=== PATIENT | male | born 1955 | race Caucasian/White ===

== ENCOUNTER → 2016-07-17 | Outpatient (CLI) | payer BC ==
[~2016-07-17] MED LIST: ASPIRIN EC81 MG PO; CELEBREX200 MG PO; FLOMAX0.4 MG PO; FOLIC ACID1 MG PO; HYDROCODON-ACE1 EAC4 PO; INDERAL PO; LEVAQUIN500 MG PO; METHOTREXATE (2.5 MG PO; MULTIVITAMINS1 EAC1 PO; PERCOCET 5-3251 EACH PO; PLAQUENIL200 MG PO; PROPRANOLOL HC120 MG PO; SILDENAFIL20 MG PO; VITAMIN D-32000 UNI1 PO
[2016-07-17 14:26] LABS: CREATININE 1.2 mg/dL (0.6-1.3)
[2016-07-17 14:28] LABS: ESTIMATED GFR (MDRD EQUATION) > 60
== END | disposition disaster alternative care site (69) ==
LOC: GLAB 13:00 → GRAD 14:00
PROVIDERS: Registered Nurse Medical-Surgical
DX: R93.7 Abnormal findings on diagnostic imaging of other parts of musculoskeletal system (principal); C61 Malignant neoplasm of prostate; M89.9 Disorder of bone, unspecified
CPT/HCPCS: A9577

== ENCOUNTER → 2016-09-04 | Day surgery (SDC) | payer BC ==
[~2016-09-04] VITALS: Ht 193 cm; Wt 84.5 kg
--- NOTE | ~2016-09-04 | OR ---
PATIENT'S NAME: BLANCA ROMEO [facility] AGE: 61 Y [address] ROOM: [place] [id number] LOCATION: [facility] [place] ADMIT DATE: 09/04/2016 OR/Procedure Report DISCHARGE DATE: FAMILY PHYSICIAN: ERLIN ORTIZ ATTENDING PHYSICIAN: Rebekah Mercado SURGEON: Rebekah Mercado MD DISTILLERY MANAGER: DATE OF PROCEDURE: 09/04/2016 PREOPERATIVE DIAGNOSIS: Adenocarcinoma of the prostate. POSTOPERATIVE DIAGNOSIS: Adenocarcinoma of the prostate. PROCEDURE PERFORMED: Transperineal ultrasound-guided implantation of iodine- 125 seeds. RADIATION ONCOLOGIST: Dr. Barreto. ANESTHESIA: General. COMPLICATIONS: None. OPERATIVE FINDINGS: Prostate volume was 35.2 mL. INDICATION FOR PROCEDURE: The patient is a 61-year-old male with adenocarcinoma of the prostate [place] 6 with a PSA of 5.7. The patient has elected to proceed with radiation seed implantation. DETAILS OF PROCEDURE: After informed consent obtained, the patient was taken to the operating room. A general anesthetic was applied and he was placed in the dorsal lithotomy position with a cushion underneath the buttocks. The ultrasound equipment hardware was assembled and the probe placed in the sled device. The probe was then placed in the rectum and serial contours of prostate were taken at 5-mm intervals using axial imaging to generate a prostate volume of 35.2 mL. Sagittal imaging was then used to determine the length of the prostate in the anterior, mid, and posterior portion of the gland from [id number]. These figures were 23, 26, and 26 mL respectively were used by the radiation oncologist to perform dosimetry calculations, continue number of iodine-125 seeds implant as well as spacing between the seeds. The groin and perineal area were then prepped with Betadine paint. The template was attached to the sled device and pushed against the perineum. Using the largest transverse imaging, needles were placed in the periphery at least 7-mm above the anterior rectal wall and at least 1 cm apart. Once all the needles were placed, we then switched to the sagittal plane. Each individual needle was then advanced to the base of the gland; at which point, PATIENT'S NAME: BLANCA ROMEO [facility] AGE: 61 Y [address] ROOM: [place] [address] LOCATION: [facility] [place] ADMIT DATE: 09/04/2016 OR/Procedure Report DISCHARGE DATE: FAMILY PHYSICIAN: ERLIN ORTIZ ATTENDING PHYSICIAN: Rebekah Mercado a radiation oncologist deposited the iodine-125 seeds. After this was completed, the needle was removed. This was repeated until all the needles in the periphery were implanted and removed. Imaging was then returned to the transverse plane. [place] were then positioned interior, approximately 1 cm from the periphery, 1 cm apart, and at least 5 mm from the urethra. I then switched back to the sagittal plane and the tip of each individual needle was brought to the base of the gland. The radiation oncologist then deposited the seeds and removed the needle as described in the periphery. At the end of the case, a cystogram was performed, which demonstrated good deposition of seeds throughout the gland and no free seeds within the bladder or urethra. The patient tolerated the procedure well and was transferred to recovery room in good condition. REBEKAH MERCADO MD VIJAY/modl /[id number] CC: JUAN Lomax MD, PhD d: 09/05/16 0125 t: 09/10/16901, OPERATIVE SUMMARY
--- NOTE | ~2016-09-04 | RTPR ---
PATIENT'S NAME: BLANCA CAMACHO [facility] AGE: 61 Y [address] ROOM: [place] [address] [place] [facility] [place] DATE: 09/04/2016 Oncology Report DISCHARGE DATE: FAMILY PHYSICIAN: ERLIN ORTIZ ATTENDING PHYSICIAN: Demario Hoyos RADIATION THERAPY PROCEDURE NOTE DATE OF SERVICE: REFERRING PHYSICIAN: Tracy Vaz MD, PhD Radiation oncology seed implant. PREOPERATIVE DIAGNOSIS: Carcinoma of the prostate. POSTOPERATIVE DIAGNOSIS: Carcinoma of the prostate. PROCEDURE PERFORMED: Transperineal ultrasound-guided implantation of iodine-125. RADIATION ONCOLOGIST: Tracy Vaz MD, PhD. UROLOGIST: Demario Hoyos MD. ANESTHESIA: General. COMPLICATIONS: None. OPERATIVE FINDINGS: Prostate volume of 35.2 mL. INDICATIONS: Mr. Blanca Camacho is a 61-year-old white male with a Drayton score of 3+3=6, preimplant PSA of 5.7. Clinical stage I, T1c, NX, M0. PROCEDURE IN DETAIL: The patient was brought to the operating room for insertion of iodine-125 PATIENT'S NAME: BLANCA CAMACHO [facility] AGE: 61 Y [address] ROOM: [place] [address] LOC[place]: [facility] [place] ADMIT DATE: 09/04/2016 Oncology Report DISCHARGE DATE: FAMILY PHYSICIAN: ERLIN ORTIZ ATTENDING PHYSICIAN: Demario Hoyos seeds into the prostate for treatment of adenocarcinoma with a Drayton score of 6 and a PSA of 5.7. The patient was placed under anesthesia, then placed in the dorsal lithotomy position with a wedge under his buttocks to elevate his perineum. The patient's rectum was irrigated with sterile water and a Meza catheter was inserted into the patient's bladder and clamped. Transrectal ultrasound probe was introduced into the patient's rectum, and the prostate was measured using planimetry. The prostate volume was determined to be 35.2 mL. The patient was then prepped and draped in the usual sterile fashion. [place] were placed through a special perineal template under ultrasound guidance into the prostate gland. During each of these needle placements and each of the following needle placements, transrectal ultrasound was used to guide the needles and determine the proper position and depth. Care was taken to avoid the patient's bladder, urethra, and rectal mucosa. 14 needles were placed around the periphery of the patient's prostate gland. 56 iodine-125 seeds were then deposited evenly through each of these needles using an applicator. The needles were then removed, and new needles were placed in interior of the prostate gland. A total of 4 needles were placed. 16 iodine-125 seeds were deposited through these needles into the prostate gland. The activity per seed was 0.375 millicurie per seed. The total number of seeds implanted was 72. The total activity implanted was 27 millicurie. Fluoroscopy was performed at the end of the procedure. A cystogram was performed after all the seeds had been placed, and no stray seeds were found in the bladder or urethra. A survey was performed. The activity at the patient's surface was 30 mrem/hour at the abdomen, 50 mrem/hour at the perineum, 0.7 mrem/hour at 1 meter. Rest of the operating room was surveyed including the equipment table, the patient's Meza bag, the laundry, and trash containers, and no stray sources of radiation were found. The patient tolerated the procedure well and was transferred to the PACU without incident. Radiation Oncology and Urology will see the patient in 1 months' time for followup and dosimetry. The patient tolerated the procedure well. He was told to contact us should any problems in the interim. We thank you for allowing us to participate in his care. TRACY VAZ MD, PHD DEIDREL/modl /[id number] CC: JUAN Lomax PATIENT'S NAME: BLANCA CAMACHO [facility] AGE: 61 Y [address] ROOM: [place], [place] [address] LOCATION: [facility] [place] ADMIT DATE: 09/04/2016 Oncology Report DISCHARGE DATE: FAMILY PHYSICIAN: ERLIN ORTIZ ATTENDING PHYSICIAN: Demario Hoyos MD LaRoy E Williams, MD Scott F Howe, MD d: 09/10/16 1318 t: 09/28/16 1008, CONSULTATION REPORT
== END | disposition disaster alternative care site (69) ==
LOC: GPOC 08-28 09:00 → GSDC 08:41 → GPOC 09:00
PROC: 0VH071Z Insertion of Radioactive Element into Prostate, Via Natural or Artificial Opening (ICD-10-PCS; principal; 2016-09-04)
DX: C61 Malignant neoplasm of prostate (principal); M05.79 Rheumatoid arthritis with rheumatoid factor of multiple sites without organ or systems involvement; F32.9 Major depressive disorder, single episode, unspecified; N52.9 Male erectile dysfunction, unspecified; D89.9 Disorder involving the immune mechanism, unspecified; Z85.828 Personal history of other malignant neoplasm of skin; Z98.890 Other specified postprocedural states; Z79.82 Long term (current) use of aspirin; Z79.899 Other long term (current) drug therapy
CPT/HCPCS: C1715; C2638; C2639; J1644; J2001; J7030